=== PATIENT | male | born 1990 | race Caucasian/White ===

== ENCOUNTER 2023-08-10 20:48 | Emergency (ER) | payer BC ==
--- OUTSIDE RECORDS SUMMARY | 2023-08-10 20:51 | XMS REPORT | Continuity of Care Document ---
Author Name Unknown Address [address] [facility] [address] [place] [address] [facility] Address [address] [facility] [address] [place] [address] Care Team Providers Care Care Center Manager Name Role Phone PCP, PATIENT DOES NOT HAVE A Primary Care Physic gisel Unavailable Karina Adamson Attending Clinician [phone] Unknown, Attending Attending Clinician Unavailab KARINA Dumont Attending Clinician Unavailable PRUDENCE MODI Attending Clinician Unavailable Rian VERGARA, Prudence Attending Clinician [phone] Doctor Unassigned, [place] Attending Clinician U Ledy Castaneda PA-C Attending Clinician [phone] LEDY ADAMS Attending Clinician Unavailable Naga GARCIA, Aditi Khan Attending Clinician Unavailab rina Only, Ang Db Test Attending Clinician UnavailVarsha Wade Attending Clinician [phone] VARSHA KING Attending Clinician Unavailabl e Payers Payer Name Policy Type Policy Number Effective Date Expirati on Date Source Problems Condition Name Condition Details Condition Category Status Onset Date Resolution Date Last Treatment Date Treating Clinician Comments Source No known active problems No known active problems Disease [facility] Allergies, Adverse Reactions, Alerts Allergy Name Allergy Type Status Severity Reaction(s) Onset Date Inactive Date Treating Clinician Comments Source PENICILL INS Drug Class Active Rash 05-01 00:00: 00 [facility] Penicill ins Propensi ty to adverse reaction s Active Rash 05-01 00:00: 00 [facility] Penicill ins Propensi ty to adverse reaction s Active Rash 05-01 00:00: 00 [facility] Social History Social Habit Start Date Stop Date Quantity Comments Source [facility] Exposure to SARS-CoV-2 (event) 2022-06-23 00:00:00 2022-07-03 19:15:00 Not sure [facility] History of Social function 2022-07-03 00:00:00 2022-07-03 00:00:00 [facility] Tobacco use and exposure 2022-02-25 00:00:00 2022-02-25 00:00:00 Smokeless tobacco non-user [facility] Sex Assigned At 1990 00:00:00 1990 00:00:00 [facility] Smoking Status Start Date Stop Date Source Never smoked tobacco [facility] Medications Ordered Medication Name Filled Medication Name Start Date Stop Date Current Medication? Ordering Clinician Indication Dosage Frequency Signature (SIG) Comments Components Source doxycycline hyclate 100 mg tablet 07-19 00:00: 00 07-27 04:59 :00 Yes [id number] 100mg Take 1 tablet by mouth in the morning and 1 tablet in the evening. Do all this for 7 days. [facility] fluticasone propionate 50 mcg/actuati on nasal spray 07-19 00:00: 00 07-27 04:59 :00 Yes [id number] 1{spray } Use 1 [place] in each nostril in the morning for 7 days. [facility] predniSONE 20 mg tablet 07-19 00:00: 00 07-25 04:59 :00 Yes [id number] 20mg Take 1 tablet by mouth in the morning for 5 days. [facility] neomycin-po lymyxin-hyd rocortisone otic solution 07-03 00:00: 00 Yes [id number] 4[drp] Place 4 Drops in left ear 4 (four) times daily. [facility] azithromyci n (ZITHROMAX Z-TOMER) 250 mg tablet 2021-04 00:00: 00 Yes [id number] 250mg Z-Tomer = 500 mg day 1, then 250 mg days 2 to 5. [facility] methylPREDN ISolone 4 mg tablets 2021-04 00:00: 00 Yes [id number] Take by mouth SEE-INSTRU CTIONS. follow package directions [facility] albuterol 90 mcg/actuati on inhaler 2021-04 00:00: 00 Yes [id number] 2{puff} Inhale 2 Puffs every 6 (six) hours as needed for Wheezing or Shortness of Breath. [facility] guaifenesin /dextrometh orphan (MUCINEX DM ORAL) 06-29 01:02: 47 Yes Take by mouth. [facility] guaifenesin /dextrometh orphan (MUCINEX DM ORAL) 06-28 19:02: 47 Yes Take by mouth. [facility] methylPREDN ISolone (MEDROL, TOMER,) 4 mg tablets 06-28 00:00: 00 Yes [id number] Take by mouth SEE-INSTRU CTIONS. follow package directions [facility] bromphenira mine-pseudo ephedrine-D M (BROMFED DM) 2-30-10 mg/5 mL syrup 06-28 00:00: 00 Yes [id number] 10mL Take 10 mL by mouth 4 (four) times daily as needed for Congestion /Allergies . [facility] azithromyci n (ZITHROMAX Z-TOMER) 250 mg tablet 06-28 00:00: 00 02-28 00:00 :00 No [id number] 250mg Take 1 tablet by mouth SEE-INSTRU CTIONS. Take 500 mg day 1, then 250 mg days 2 to 5. [facility] butalbital- acetaminoph en-caff (ESGIC) 50-325-40 mg tablet 01-17 00:00: 00 Yes [id number] 1{tbl} Take 1 tablet by mouth every 6 (six) hours as needed for Pain (scale 4-6) (headache) . [facility] Vital Signs Vital Name Observation Time Observation Value Comments S ource Heart rate 2023-07-20 14:26:00 57 /min [facility] Body temperature 2023-07-20 14:26:00 36.56 Kathrine [facility] Respiratory rate 2023-07-20 14:26:00 17 /min [facility] Body height 2023-07-20 14:26:00 180.3 cm [facility] Body weight 2023-07-20 14:26:00 60.385 kg [facility] BMI 2023-07-20 14:26:00 18.57 kg/m2 [facility] Oxygen saturation in Arterial blood by Pulse oximetry 2023-07-20 14:26:00 98 /min [facility] Systolic blood pressure 2023-07-20 14:26:00 110 mm[Hg] [facility] Diastolic blood pressure 2023-07-20 14:26:00 69 mm[Hg] [facility] Systolic blood pressure 2022-07-04 00:16:00 97 mm[Hg] [facility] Diastolic blood pressure 2022-07-04 00:16:00 58 mm[Hg] [facility] Heart rate 2022-07-04 00:16:00 58 /min [facility] Body temperature 2022-07-04 00:16:00 36.94 Kathrine [facility] Respiratory rate 2022-07-04 00:16:00 16 /min [facility] Body height 2022-07-04 00:16:00 182.9 cm [facility] Body weight 2022-07-04 00:16:00 62.341 kg [facility] BMI 2022-07-04 00:16:00 18.64 kg/m2 [facility] Oxygen saturation in Arterial blood by Pulse oximetry 2022-07-04 00:16:00 97 /min [facility] Systolic blood pressure 2022-02-25 14:48:00 122 mm[Hg] [facility] Diastolic blood pressure 2022-02-25 14:48:00 68 mm[Hg] [facility] Heart rate 2022-02-25 14:48:00 66 /min [facility] Body temperature 2022-02-25 14:48:00 36.61 Kathrine [facility] Respiratory rate 2022-02-25 14:48:00 16 /min [facility] Body height 2022-02-25 14:48:00 182.9 cm [facility] Body weight 2022-02-25 14:48:00 61.1 kg [facility] BMI 2022-02-25 14:48:00 18.27 kg/m2 [facility] Oxygen saturation in Arterial blood by Pulse oximetry 2022-02-25 14:48:00 99 /min [place] [facility] Procedures Procedure Date / Time Performed Performing Clinicia n Source [facility] PATIENT FINANCIAL POLICY 2022-07-04 00:12:21 Doctor Unassigned, [place] [facility] ASSIGNMENT OF BENEFITS 2022-02-25 14:27:21 Docto r Unassigned, [place] [facility] Encounters Start Date/Time End Date/Time Encounter Type Admission Type Attending [facility] Care Department Encounter ID Source 2023-07-20 10:00:00 2023-07-20 10:20:00 Urgent Care Karina Rausch Unknown, Attending [facility] [id number] [facility] 2023-07-20 10:00:00 2023-07-20 10:00:00 Outpatient R KARINA RAUSCH [facility] [id number] [facility] 2022-07-03 19:20:00 2022-07-03 19:32:24 Outpatient R PRUDENCE MODI [facility] [id number] [facility] 2022-07-03 19:20:00 2022-07-03 19:32:24 Urgent Care Prudence Modi Unknown, Attending [facility] [id number] [facility] 2022-07-03 00:00:00 2022-07-03 00:00:00 Orders Only Doctor Unassigned, [place] [facility] [id number] [facility] 2022-02-28 00:00:00 2022-02-28 00:00:00 Telephone Ledy Adams [facility] [id number] [id number] [facility] 2022-02-25 09:20:00 2022-02-25 10:14:45 Outpatient R LEDY ADAMS [facility] [id number] [facility] 2022-02-25 09:20:00 2022-02-25 10:14:45 Urgent Care Ledy Adams Unknown, Attending [facility] [id number] [id number] [id number] [facility] 2022-02-25 00:00:00 2022-02-25 00:00:00 Orders Only Doctor Unassigned, [place] [facility] [id number] [id number] [id number] [id number] [facility] 2020-12-30 00:00:00 2020-12-30 00:00:00 Letter (Out) Aditi Nielson [facility] [id number] [id number] [id number] [id number] [facility] 2020-12-28 12:34:31 2020-12-28 12:49:31 Laboratory Only Only, Ang Db Test [facility]ha [facility] [id number] [id number] [id number] [facility] 2020-12-28 12:45:00 2020-12-28 12:45:00 Outpatient [facility] [id number] [facility] 2020-12-28 12:45:00 2020-12-28 12:45:00 Outpatient R VARSHA KING [facility] [id number] [facility]
--- NOTE | 2023-08-10 22:19 | RAD REPORT ---
EXAM DESCRIPTION: RAD - Shoulder Left 2 View - 08/10/2023 10:00 pm CLINICAL HISTORY: Left shoulder pain FINDINGS: No fracture or dislocation is seen.
--- NOTE | 2023-08-10 22:23 | EDPHYS ---
Physician Documentation [facility] Name: Michael Travis Age: 32 yrs Sex: Male : 1990 Arrival Date: 08/10/2023 Time: 20:48 Bed 8 Private MD: ED Physician James Gould HPI: 08/09 21:00 This 32 yrs old Male presents to ER via Unassigned with complaints of ec2 Shoulder Injury. 21:00 Patient arrives today for left shoulder pains. States that he was rotating back ec2 subsequently felt that he dislocated. Patient with history of dislocation of the shoulder. States that he feels like he had a back in place. No falls injuries or trauma. Patient reports no other concerns.. Historical: - Allergies: 21:03 PCN; jb4 - PMHx: 21:03 ANDRÉS shoulder dislocation.; jb4 - PSHx: 21:03 Hernia repair; jb4 - Immunization history:: Adult Immunizations up to date. - Infectious Disease History:: Denies. - Social history:: Smoking status: Patient denies any tobacco usage or history of. ROS: 21:00 Constitutional: as per hpi ec2 Exam: 21:00 Constitutional: GEN: NAD Head: atraumatic Eyes: EOMI Ears: External ears are ec2 normal. CV: regular rate LUNGS: no respiratory distress ABD: non-distended SKIN: no evidence of rashes MSK: No obvious deformity of the left shoulder, no blocks of appearance, intact distal neurovascular status, limited range of motion due to pain however seems to be intact. NEURO: moves all extremities equally Vital Signs: 21:00 BP 148 / 86; Pulse 65; Resp 16; Temp 98.3(O); Pulse Ox 100% on R/A; Weight 61.23 kg jb4 (R); Height 5 ft. 11 in. (R); Pain 8/10; 21:07 BP 148 / 86; Pulse 60; Resp 17 S; Pulse Ox 99% on R/A; ha1 21:43 BP 134 / 86; Pulse 60; Pulse Ox 100% on R/A; Pain 2/10; tm6 22:40 BP 129 / 85; Pulse 74; Resp 19; Temp 98.4(TE); Pulse Ox 98% on R/A; Pain 0/10; tm6 21:00 Body Mass Index 18.83 (61.23 kg, 180.34 cm) jb4 21:00 Pain Scale: Adult jb4 21:43 Pain Scale: Adult tm6 22:40 Pain Scale: Adult tm6 MDM: 21:00 Patient medically screened. ec2 21:00 Data reviewed: vital signs. ED course: Patient arrives today for left shoulder injury. ec2 Examination remarkable for shoulder findings as above. Will obtain radiograph. Suspect dislocation status post reduction. Additionally considering persistent dislocation, doubt fracture.. 22:21 ED course: Shoulder x-ray dependently reviewed and interpreted by me, shows no bony ec2 fracture or dislocation. Will discharge home. Return precautions given.. 08/09 20:59 Order name: Shoulder Left (2 View) XRAY; Complete Time: 22:21 ec2 Administered Medications: No medications were administered Disposition Summary: 08/10/23 22:22 Discharge Ordered Notes: Location: Home ec2 Condition: Stable ec2 Diagnosis - Shoulder Injury ec2 Followup: ec2 - With: Ar Ford MD - When: - Reason: Recheck today's complaints Discharge Instructions: - Discharge Summary Sheet ec2 - Shoulder Dislocation, [id number] ec2 Forms: - Medication Reconciliation Form ec2 - Thank You Letter ec2 - Antibiotic Education ec2 - Prescription Opioid Use ec2 - Patient Portal Instructions ec2 - Leadership Thank You Letter ec2 - Work release form tm6 Signatures: Dispatcher [employer] Joel Benavides RN RN jb4 James Gould MD MD ec2
--- NOTE | 2023-08-10 22:23 | ER ---
Nurse's Notes 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 I have done it before in the past. I think its still out of place. Coronavirus screen: At this time, the client does not indicate any symptoms associated with coronavirus-19. Ebola Screen: No symptoms or risks identified at this time. Initial Sepsis Screen: Does the patient meet any 2 criteria? No. Patient's initial sepsis screen is negative. Does the patient have a suspected source of infection? No. Patient's initial sepsis screen is negative. Risk Assessment: Do you want to hurt yourself or someone else? Patient reports no desire to harm self or others. Onset of symptoms was August 10, 2023. Transition of care: patient was not received from another setting of care. 21:00 Method Of Arrival: Ambulatory jb4 21:00 Acuity: MONA 4 jb4 Triage Assessment: 22:46 General: Appears in no apparent distress. Injury Description: patient stated he may tm6 have dislocated his left shoulder, but popped it back into place prior to arrival. Historical: - Allergies: 21:03 PCN; jb4 - PMHx: 21:03 ADNRÉS shoulder dislocation.; jb4 - PSHx: 21:03 Hernia repair; jb4 - Immunization history:: Adult Immunizations up to date. - Infectious Disease History:: Denies. - Social history:: Smoking status: Patient denies any tobacco usage or history of. Screenin:06 [facility] ED Fall Risk Assessment (Adult) History of falling in the last 3 months, tm6 including since admission No falls in past 3 months (0 pts) Confusion or Disorientation No (0 pts) Intoxicated or Sedated No (0 pts) Impaired Gait No (0 pts) Mobility Assist Device Used No (0 pt) Altered Elimination No (0 pt) Score/Fall Risk Level 0 - 2 = Low Risk Oriented to surroundings, Maintained a safe environment. 21:08 Abuse screen: Denies threats or abuse. Denies injuries from another. Nutritional ha1 screening: No deficits noted. Tuberculosis screening: No symptoms or risk factors identified. Assessment: 21:06 General: Appears in no apparent distress. uncomfortable, Behavior is calm, cooperative. tm6 Pain: Complains of pain in right arm and left leg Pain currently is 2 out of 10 on a pain scale. Quality of pain is described as sore. Neuro: Level of Consciousness is awake, alert, obeys commands, Oriented to person, place, time, situation. Cardiovascular: No deficits noted. Patient's skin is warm and dry. Respiratory: Airway is patent Respiratory effort is even, unlabored, Respiratory pattern is regular, symmetrical. GI: Abdomen is flat, non-distended. : No signs and/or symptoms were reported regarding the genitourinary system. EENT: No signs and/or symptoms were reported regarding the EENT system. Derm: No signs and/or symptoms reported regarding the dermatologic system. Musculoskeletal: Reports pain in left arm and right leg since 2029, possibly dislocated left shoulder but patient stated he popped it back into place. Pain is 2 out of 10 on a pain scale. 21:43 Reassessment: No changes from previously documented assessment. tm6 22:36 Reassessment: Patient and/or family updated on plan of care and expected duration. Pain ha1 level reassessed. Patient is alert, oriented x 3, equal unlabored respirations, skin warm/dry/pink. Vital Signs: 21:00 BP 148 / 86; Pulse 65; Resp 16; Temp 98.3(O); Pulse Ox 100% on R/A; Weight 61.23 kg jb4 (R); Height 5 ft. 11 in. (R); Pain 8/10; 21:07 BP 148 / 86; Pulse 60; Resp 17 S; Pulse Ox 99% on R/A; ha1 21:43 BP 134 / 86; Pulse 60; Pulse Ox 100% on R/A; Pain 2/10; tm6 22:40 BP 129 / 85; Pulse 74; Resp 19; Temp 98.4(TE); Pulse Ox 98% on R/A; Pain 0/10; tm6 21:00 Body Mass Index 18.83 (61.23 kg, 180.34 cm) jb4 21:00 Pain Scale: Adult jb4 21:43 Pain Scale: Adult tm6 22:40 Pain Scale: Adult tm6 ED Course: 20:40 Shoulder immobilizer applied on left shoulder. tm6 20:50 Patient arrived in ED. jb4 20:51 Patient has correct armband on for positive identification. Bed in low position. Call ha1 light in reach. Side rails up X 1. 20:52 James Gould MD is Attending Physician. ec2 20:58 Jodi Fenton, RN is Primary Nurse. tm6 21:03 Triage completed. jb4 21:03 Arm band placed on right wrist. jb4 21:06 Provided Education on: plan of care. Client placed on continuous cardiac and pulse tm6 oximetry monitoring. NIBP monitoring applied. Pulse ox on. NIBP on. Door closed. Noise minimized. 22:02 Shoulder Left (2 View) XRAY In Process Unspecified. EDMS 22:22 Ar Ford MD is Referral Physician. ec2 22:36 No provider procedures requiring assistance completed. Patient did not have IV access ha1 during this emergency room visit. Administered Medications: No medications were administered Medication: 21:06 VIS not applicable for this client. tm6 Outcome: 22:22 Discharge ordered by . ec2 22:37 Condition: stable ha1 22:40 Discharged to home ambulatory, tm6 22:40 Discharge instructions given to patient, Instructed on discharge instructions, follow up and referral plans. shoulder immobilizer Demonstrated understanding of instructions, follow-up care, shoulder immobilizer 22:43 Patient left the ED. tm6 Signatures: Dispatcher [employer] Joel Benavides RN RN [facility] Yessy Silva RN RN 1 James Gould MD MD 2 Jodi Fenton RN RN tm6
[2023-08-10 23:05] VITALS: BP 134/86; TEMP 98.3; O2SAT 100
== END 2023-08-10 22:43 | disposition home or self-care (01) ==
LOC: ER 20:48
DX: S49.92XA Unspecified injury of left shoulder and upper arm, initial encounter (principal); Z88.0 Allergy status to penicillin
CPT/HCPCS: 99283